=== PATIENT | male | born 1945 | race Caucasian/White ===

== ENCOUNTER 2022-07-12 05:48 | Inpatient (IN) ==
--- NOTE | 2022-06-20 11:05 | PAT Medication Instructions ---
Medication Instructions Date of Service June 20, 2022 Home Medications atorvastatin 20 mg tablet 20 mg PO HS cyanocobalamin (vitamin B-12) 1,000 mcg tablet (Vitamin B-12) 1,000 mcg PO QAM fentanyl 25 mcg/hr transdermal patch 1 patch transdermal Q72H hydrochlorothiazide 25 mg tablet 25 mg PO QAM loratadine 10 mg tablet (Claritin) 10 mg PO QAM methocarbamol 500 mg tablet 500 mg PO Q12 PRN MUSCLE SPASMS omeprazole 20 mg capsule,delayed release 20 mg PO BID sertraline 50 mg tablet 75 mg PO QAM tamsulosin 0.4 mg capsule (Flomax) 0.4 mg PO HS pregabalin 300 mg capsule 300 mg PO BID Continue as directed fentanyl 25 mcg/hr transdermal patch 1 patch transdermal Q72H (do NOT put on or near surgical site) DO NOT take the morning of surgery cyanocobalamin (vitamin B-12) 1,000 mcg tablet (Vitamin B-12) 1,000 mcg PO QAM hydrochlorothiazide 25 mg tablet 25 mg PO QAM loratadine 10 mg tablet (Claritin) 10 mg PO QAM methocarbamol 500 mg tablet 500 mg PO Q12 PRN MUSCLE SPASMS Take morning of surgery With a small sip of water, OTHERWISE NOTHING TO EAT OR DRINK AFTER MIDNIGHT: omeprazole 20 mg capsule,delayed release 20 mg PO BID sertraline 50 mg tablet 75 mg PO QAM pregabalin 300 mg capsule 300 mg PO BID Take evening before surgery atorvastatin 20 mg tablet 20 mg PO HS methocarbamol 500 mg tablet 500 mg PO Q12 PRN MUSCLE SPASMS (if needed) omeprazole 20 mg capsule,delayed release 20 mg PO BID tamsulosin 0.4 mg capsule (Flomax) 0.4 mg PO HS pregabalin 300 mg capsule 300 mg PO BID Other Notes If you have any questions please call us at [phone] or [phone] or [phone] or [phone]
--- NOTE | 2022-06-28 11:52 | Anesthesiology Consultation ---
Date of Service June 28, 2022 Assessment & Plan (1) Encounter for pre-operative examination: - awaiting surgeon ordered medical clearance, optimization note completed regarding elevated creatinine-to be faxed to [place] PCP Isac Melton. - h/o "throat cyst" excision, pt and state it was many yrs ago, deny h/o intubation issues. Chart Review Chart Review: Pending: Refer to Additional Notes / Consult section and Patient seen in Pre Admission Testing Teaching & Discussion Pre-Anesthesia Teaching/Discussion Notes: Instructed NPO after midnight before surgery, except medications with 15 cc of water. Medication instructions provided according to the PAT guidelines. History Surgery Operation Date: 07/12/22 07:45 Proposed Procedures p L3-S1 Decompression and Fusion, Spinal Cord Monitoring - Ministerio Donato DO Height/Weight Height: 6 ft Weight: 99.79 kg Allergies Allergy/AdvReac Type Severity Reaction Status Date / Time morphine Allergy Severe ITCHING Verified 06/20/22 10:05 Sulfa (Sulfonamide Allergy Severe Anaphylaxis Verified 06/20/22 10:05 Antibiotics) shellfish derived AdvReac KELLY/ GI Verified 06/28/22 11:54 upset Medications Home Medications Medication Instructions Recorded Confirmed Last Taken atorvastatin 20 mg tablet 20 mg PO HS 04/23/20 06/20/22 Unknown cyanocobalamin (vitamin B-12) 1,000 mcg PO QAM 04/23/20 06/20/22 Unknown 1,000 mcg tablet (Vitamin B-12) fentanyl 25 mcg/hr transdermal 1 patch transdermal Q72H 04/23/20 06/20/22 U nknown patch hydrochlorothiazide 25 mg tablet 25 mg PO QAM 04/23/20 06/20/22 Unknown loratadine 10 mg tablet (Claritin) 10 mg PO QAM 04/23/20 06/20/22 Unknown methocarbamol 500 mg tablet 500 mg PO Q12 PRN MUSCLE SPASMS 04/23/20 06/20/22 Unknown omeprazole 20 mg capsule,delayed 20 mg PO BID 04/23/20 06/20/22 Unknown release sertraline 50 mg tablet 75 mg PO QAM 04/23/20 06/20/22 Unknown tamsulosin 0.4 mg capsule (Flomax) 0.4 mg PO HS 04/23/20 06/20/22 Unknown pregabalin 300 mg capsule 300 mg PO BID 06/20/22 06/20/22 Unknown Past Medical History Medical History (Updated 06/28/22 @ 11:56 by Dora Gregory PA-C) BPH (benign prostatic hyperplasia) Chronic lumbar pain Depression GERD (gastroesophageal reflux disease) controlled, stable per pt; s/p surgical intervention hiatal hernia Hearing deficit History of bleeding peptic ulcer History of blood transfusion 1990s for GI bleed Hyperlipidemia Hypertension controlled, stable per pt Irregular heart beat per , "every once in a while his heart beats funny" denies palpitations, chest discomfort, shortness of breath or dizziness Neuropathy hands and feet bilat PTSD (post-traumatic stress disorder) Patient denies h/o stroke, seizures, heart attack, heart failure, DM, blood clots or blood transfusions. Exercise / Class Metabolic Activity II 4-5 Yardwork/Stairs/Walk up hill (denies chest discomfort or shortness of breath with 1 FOS) Past Family History Family History Other No family history of adverse response to anesthesia Past Surgical History Surgical History (Updated 06/28/22 @ 12:09 by Dora Gregory PA-C) H/O removal of cyst throat History of back surgery History of colonoscopy History of esophagogastroduodenoscopy (EGD) History of repair of hiatal hernia History of right inguinal hernia repair History of tonsillectomy History of tooth extraction Past Anesthesia History No Hx of Anesthesia Complications and No Family Hx of Anesthesia Complications History of PONV No Hx of PONV and No Hx of Motion Sickness Social History Smoking Status: Former smoker Do You Dip or Chew Tobacco: No Smoking End Date: 1988 Hx Alcohol Use: No Hx Substance Use: No substance use type: does not use Review of Systems Patient denies chest pain, shortness of breath, dyspnea on exertion, snoring, witnessed apneas, fever, chills, cough, wheezing, or palpitations. Physical Exam Vital Signs Vitals BP 133/81 P 75 TEMP 98.3 SP02 97% on RA RESP 18 Physical Full cervical extension range of motion without pain TMD 3.5 finger breadths Mallampati Score Dentition: edentulous, full upper and lower dentures Lungs: normal respiratory effort. Good air movement, clear throughout to auscultation, no adventitious breath sounds Cardiac: regular rate and rhythm, no murmurs noted Carotid arteries: negative bruit bilat Lab Results Anesthesia Preop Results Results Anesthesia Widget: WBC 5.48 K/ul (4.8-10.8) 06/28/22 Hgb 13.5 g/dl (14.0-18.0) L 06/28/22 Hct 39.7 % (42.0-52.0) L 06/28/22 Plt 147 K/uL (130-400) 06/28/22 Na 141 mmol/L (136-145) 06/28/22 K 3.9 mmol/L (3.5-5.1) 06/28/22 Cl 105 mmol/L (98-107) 06/28/22 CO2 28 mmol/L (21-32) 06/28/22 BUN 31 mg/dl (6-23) H 06/28/22 Creat 1.53 mg/dl (0.6-1.4) H 06/28/22 Glucose Level 103 mg/dl (70-99(Fasting)) H 06/28/22 PT 11.6 Seconds (9.0-12.0) 06/28/22 PTT 27.9 Seconds (21.0-31.0) 06/28/22 INR 1.1 (0.9-1.1) 06/28/22 Urine Color Dark Yellow 06/28/22 Urine Appearance Clear (Clear) 06/28/22 Urine pH 5.0 (4.5-7.5) 06/28/22 Urine Specific [place] 1.022 (1.000-1.030) 06/28/22 Urine Protein Negative (Negative) 06/28/22 Urine Glucose (UA) Negative (Negative) 06/28/22 Urine Ketones Trace (Negative) H 06/28/22 Urine Blood Negative (Negative) 06/28/22 Urine Nitrite Negative (Negative) 06/28/22 Urine Bilirubin Negative (Negative) 06/28/22 Urine Urobilinogen Negative (Negative) 06/28/22 Urine Leukocyte Esterase Negative (Negative) 06/28/22 Blood Type A Positive 06/28/22 Antibody Screen NEGATIVE 06/28/22 Testing Electrocardiogram Date: 06/28/22 NSR, rate 60 bpm Chest X-Ray Date: 06/28/22 No acute process COVID-19 Risk Screen Screening Information COVID-19 Screen Date: 06/28/22 Exposure 21 Days Family/Household +COVID Last 21 Days: No Exposure 10 Days Any COVID Exposure Last 10 Days: No Symptoms Last 10 Days Experienced COVID Sx Last 10 Days: No + COVID 0-90 Days COVID + in Last 0-90 Days: No
[2022-07-12] MEDS ORDERED: LR 15ML/HR IV SCH (06:00)
[2022-07-12] MEDS ORDERED: GABAPENTIN 300 MG CAP PO SCH (06:00)
[2022-07-12] MEDS ORDERED: ACETAMINOPHEN 500 MG TAB PO SCH (06:00)
[2022-07-12] MEDS ORDERED: CeleBREX 200 MG CAP PO SCH (06:00)
[2022-07-12] MEDS ORDERED: fentaNYL citrate PF 100 MCG/2 ML VIAL ONE (07:10)
[2022-07-12] MEDS ORDERED: ceFAZolin 330 MG/ML 1 GM VIAL ONE (07:15)
[2022-07-12] MEDS ORDERED: BUPIVACAINE/EPINEPHRINE 0.25% 1:200,000 30 ML VIAL ONE (07:15)
[2022-07-12] MEDS ORDERED: ROCURONIUM BROMIDE 10 MG/ML 5 ML VIAL IV ONE ×3 (07:21→09:30)
[2022-07-12] MEDS ORDERED: PROPOFOL IV EMULSION 10 MG/ML 20 ML VIAL IV ONE (07:21)
[2022-07-12] MEDS ORDERED: LIDOCAINE 2% 2 ML VIAL/AMP(20MG/ML) INFIL ONE (07:21)
--- NOTE | 2022-07-12 07:36 | History & Physical Bridge Note ---
Date of Service July 12, 2022 History & Physical Bridge Note I have examined the patient, reviewed the History & Physical and in the interval since the performance of the History & Physical I have noted the following changes of clinical significance: no changes noted
--- NOTE | 2022-07-12 07:38 | History & Physical Report ---
Date of Service July 12, 2022 Assessment & Plan (1) Neurogenic claudication due to lumbar spinal stenosis: Plan: L3-S1 decompression and fusion History of Present Illness Chief Complaint: Back and leg pain Primary Care Provider: BELIA DixonC This is a 76-year-old male who presents with significant back and leg pain after failing extensive course of nonoperative care is here for surgical intervention. Allergies Allergy/AdvReac Type Severity Reaction Status Date / Time morphine Allergy Severe ITCHING Verified 07/12/22 06:26 Sulfa (Sulfonamide Allergy Severe Anaphylaxis Verified 07/12/22 06:26 Antibiotics) shellfish derived AdvReac KELLY/ GI Verified 07/12/22 06:26 upset Home Medications Medication Instructions Recorded Confirmed Type atorvastatin 20 mg tablet 20 mg PO HS 04/23/20 07/12/22 History cyanocobalamin (vitamin B-12) 1,000 mcg PO QAM 04/23/20 07/12/22 History 1,000 mcg tablet (Vitamin B-12) fentanyl 25 mcg/hr transdermal 1 patch transdermal Q72H 04/23/20 07/12/22 History patch hydrochlorothiazide 25 mg tablet 25 mg PO QAM 04/23/20 07/12/22 History loratadine 10 mg tablet (Claritin) 10 mg PO QAM 04/23/20 07/12/22 History methocarbamol 500 mg tablet 500 mg PO Q12 PRN MUSCLE SPASMS 04/23/20 07/12/22 History omeprazole 20 mg capsule,delayed 20 mg PO BID 04/23/20 07/12/22 History release sertraline 50 mg tablet 75 mg PO QA 04/23/20 07/12/22 History tamsulosin 0.4 mg capsule (Flomax) 0.4 mg PO HS 04/23/20 07/12/22 History pregabalin 300 mg capsule 300 mg PO BID 06/20/22 07/12/22 History Past Med/Surg History Medical History (Updated 07/12/22 @ 07:37 by Ministerio Donato DO) BPH (benign prostatic hyperplasia) Chronic lumbar pain Depression GERD (gastroesophageal reflux disease) controlled, stable per pt; s/p surgical intervention hiatal hernia Hearing deficit History of bleeding peptic ulcer History of blood transfusion 1990s for GI bleed Hyperlipidemia Hypertension controlled, stable per pt Irregular heart beat per , "every once in a while his heart beats funny" denies palpitations, chest discomfort, shortness of breath or dizziness Neuropathy hands and feet bilat PTSD (post-traumatic stress disorder) Surgical History H/O removal of cyst throat History of back surgery History of colonoscopy History of esophagogastroduodenoscopy (EGD) History of repair of hiatal hernia History of right inguinal hernia repair History of tonsillectomy History of tooth extraction Family History Other No family history of adverse response to anesthesia Social History Smoking Status: Former smoker Smoking End Date: 1988; Second Hand Exposure: No; Do You Dip or Chew Tobacco: No; Tobacco Cessation Education Requested by Patient: No Hx Alcohol Use: No Hx Substance Use: No Preferred Language: Korean Communication Ability: Effective An/Syq 13 Nav/C2 Operator Required: No Beliefs That Will Affect Care: None marital status: Current Living Situation: Spouse current occupational status: retired Feels Safe at Home: Yes Safety Concerns: Feels Safe At This Time Assistive Devices: Cane, Denture - Upper, Denture - Lower, Glasses and Hearing Aid - Bilateral Assistive Devices Comment: does not always wear KELLY Physical Exam Physical Exam: Patient is alert and oriented Heart regular rhythm Lungs clear Results & Data Results & Data Vital Signs (Past 12 Hours) Vital Signs Temp Pulse Resp BP Pulse Ox O2 Del Method 07/12/22 07:03 36.7 C 57 L 20 155/87 H 98 Room Air
[2022-07-12] MEDS ORDERED: SODIUM CHLORIDE 0.9% 250 ML IV PRN (07:42)
[2022-07-12] MEDS ORDERED: FLOSEAL HEMOSTATIC MATRIX 10ML TOP ONE (08:39)
[2022-07-12] MEDS ORDERED: FLUMAZENIL 0.1 MG/1 ML 10 ML VIAL IV PRN (08:44)
[2022-07-12] MEDS ORDERED: ATROPINE SULFATE 0.1 MG/ML 10ML SYR IV PRN (08:44)
[2022-07-12] MEDS ORDERED: PROMETHAZINE HCL 12.5 MG in SODIUM CHLORIDE 0.9% 50 ML IV PRN ×2 (08:44→12:54)
[2022-07-12] MEDS ORDERED: NALOXONE HCL 0.4 MG/1 ML VIAL/CARP IV PRN ×2 (08:44→12:54)
[2022-07-12] MEDS ORDERED: ONDANSETRON INJ 2 MG/ML 2 ML VIAL IV PRN ×2 (08:44→12:54)
[2022-07-12] MEDS ORDERED: LABETALOL HCL IV 5 MG/ML 20ML IV PRN (08:44)
[2022-07-12] MEDS ORDERED: ePHEDrine sulfate 50 MG/ML AMP IV PRN (08:44)
[2022-07-12] MEDS ORDERED: DEXAMETHASONE SOD INJ 4 MG/ML VIAL ONE (09:35)
[2022-07-12] MEDS ORDERED: ONDANSETRON INJ 2 MG/ML 2 ML VIAL ONE (09:35)
[2022-07-12] MEDS ORDERED: PHENYLEPHRINE HCL 10 MG/ML VIAL ONE (09:35)
[2022-07-12] MEDS ORDERED: SODIUM CHLORIDE 0.9% PF INJ 10 ML VIAL ONE (09:35)
[2022-07-12] MEDS ORDERED: ePHEDrine sulfate 50 MG/ML AMP ONE (09:35)
[2022-07-12] MEDS ORDERED: GLYCOPYRROLATE 0.2 MG/ML VIAL ONE (09:35)
[2022-07-12] MEDS ORDERED: SUGAMMADEX SODIUM 200 MG/2 ML VIAL IV ONE (09:47)
--- NOTE | 2022-07-12 10:09 | Operative Report ---
Post Operative Report Pre & Post Diagnosis Operation Date: 07/12/22 07:45 Pre-Op Diagnosis: Neurogenic claudication due to lumbar spinal stenosis Recurrent lumbar disc herniation Post-Op Diagnosis: Same I identified the patient and participated in the time-out.: Yes Procedure Operation Date: 07/12/22 07:45 Actual Procedures 1. Revision decompression of bilateral medial facetectomies and foraminotomies L2-L3, L3-L4 and L4-5. #2 posterior spinal fusion L3-L4 L4-5. #3 placement posterior instrumentation L3-L5. #4 interbody fusion L4-L5. #5 placement Spira 14 x 26 mm cage at L4-5. #6 placement of locally harvested morselized autograft in the posterior gutters. #7 placement infuse collagen sponge bone mass graft in the posterior gutters and I factor in the interbody space. Surgeon Ministerio Donato DO Medical Chief Technician Camila Bajwa Estimated Blood Loss 350 Findings Consistent with Post-Op Diagnosis Specimens none Indications This is a 76-year-old male presents above-mentioned diagnosis Extensive course of nonoperative care is here for surgical invention. Description of Procedure Patient was met with identified informed consent obtained. Patient was then taken to the operative suite underwent intubation placed in the prone position on the Gerson table top Keanu frame. All bony promises well-padded eyes inspected to ensure no external pressure placed upon the proximal lumbar spine was prepped and draped in sterile fashion. Sharp dissection with the assistance of Bovie cautery then performed down to and exposing the remaining lamina and transverse processes of L3-L4-L5 bilaterally. From caudal and cephalad fashion revision complete laminectomy of L4 L3 and partial laminectomy L2 was performed and bilaterally facetectomies and foraminotomies addressing severe spinal stenosis. Marked scarring was identified and an incidental durotomy noted. I was repaired with a 4-0 Nurolon which provided complete closure. Massive recurrent disc herniation L4-5 was also identified and removed in its entirety. Pedicle screws then placed in all 3 L4-L5 bilaterally with assistance of fluoroscopy and properly sized lisa placed. By way of transforaminal approach and left knee discectomy of L for 5 was performed endplates curetted to subcortically and bone and the 14 x 26 mm Spira cage with I factor tapped in position. Infuse bone sponge from mass graft locally harvested morselized autograft was then placed in the posterior gutters. 15 round YESSENIA drain inserted. Incision was then closed with 1 Vicryl the fascia 2-0 Vicryl subcutaneously and 4 Monocryl for final skin closure. Steri-Strip sterile dressing placed. Patient awakened taken to PACU stable condition. Please note spinal cord monitoring utilized at the procedure no changes noted. Lastly Camila Bajwa is present at the entire surgery and while the patient positioning complex portions of the surgery and final skin closure. I attest to the content of the Intraoperative Record and any orders documented therein. Any exceptions are noted below.
[2022-07-12] MEDS: fentaNYL citrate PF 100 MCG/2 ML VIAL IV PRN ×4 (10:48→11:04)
[2022-07-12] MEDS: HYDROmorphone INJ 1 MG/ML SYRINGE IV PRN ×4 (11:10→18:27)
--- NOTE | 2022-07-12 11:31 | Anesthesiology Progress Note ---
Date of Service July 12, 2022 Anesthesia Post Procedure Vital Signs Vital Signs: Temp Pulse Pulse Resp BP Pulse Ox O2 Del Method 07/12/22 11:05 66 12 95/68 L 98 Nasal Cannula 07/12/22 10:55 63 15 112/67 96 Nasal Cannula 07/12/22 11:15 64 14 117/68 96 Nasal Cannula 07/12/22 10:45 67 17 107/73 95 Nasal Cannula 07/12/22 10:35 68 12 112/63 97 Oxymask 07/12/22 10:27 36.2 C L 69 17 124/68 97 Oxymask 07/12/22 07:03 36.7 C 57 L 20 155/87 H 98 Room Air O2 Flow Rate 07/12/22 11:05 2 07/12/22 10:55 2 07/12/22 11:15 2 07/12/22 10:45 2 07/12/22 10:35 5 07/12/22 10:27 5 07/12/22 07:03 Pain Intensity Generalized: Pain Intensity: 5 Back: Pain Intensity: 4 Transfer of Care Handoff Completed per policy Notes Mental Status: alert / awake / arousable Patient Amnestic to Procedure: Yes Nausea / Vomiting: adequately controlled Pain: adequately controlled Airway Patency, RR, SpO2: stable & adequate BP & HR: stable & adequate Hydration State: stable & adequate Anesthetic Complications: no major complications apparent
--- NOTE | 2022-07-12 12:20 | Fluoroscopy Report ---
FL lumbar spine 2-3V CLINICAL HISTORY: L2-S1 DFI TECHNIQUE: 2 views were obtained with the C-arm in the OR with the above procedure. Total fluoroscopy time was 31 seconds. Radiation dose was 36.6 mGy. Comparison: None available at the time of this dictation. FINDINGS/IMPRESSION: Intraoperative images were obtained of L3 S1 discectomy and fusion. Please correlate with intraoperative fluoroscopy and operative report. ACT 112: Negative or not required by law. Electronically signed by: Lico Garnett M.D. 07/12/2022 12:19 PM
[2022-07-12] MEDS ORDERED: diphenhydrAMINE Capsule 25 MG CAP PO PRN (12:54)
[2022-07-12] MEDS ORDERED: ALUMINUM/MAGNESIUM SUSP 30 ML UDC PO PRN (12:54)
[2022-07-12] MEDS ORDERED: bisacodyL 10 MG SUPP PR PRN (12:54)
[2022-07-12] MEDS ORDERED: METHOCARBAMOL 500 MG TABLET PO PRN (12:54)
[2022-07-12] MEDS ORDERED: ACETAMINOPHEN 1,000 MG/100 ML VIAL IV PRN (12:54)
[2022-07-12] MEDS ORDERED: MAGNESIUM HYDROXIDE SUSP 30 ML UDC PO PRN (12:54)
[2022-07-12] MEDS ORDERED: ONDANSETRON 4 MG OD TAB PO PRN (12:54)
[2022-07-12] MEDS ORDERED: SOD PHOSPHATE/SOD BIPHOSPHATE ENEMA 132 ML BTL PR PRN (12:54)
[2022-07-12] MEDS ORDERED: LORazepam 0.5 MG TAB PO PRN (12:54)
[2022-07-12] MEDS ORDERED: DO NOT ADMINISTER FLU VACCINE PRN (12:54)
[2022-07-12] MEDS ORDERED: traMADol HCL 50 MG TABLET PO PRN (12:54)
[2022-07-12] MEDS ORDERED: DO NOT ADMINISTER PNEUMOCOCCAL VACCINE PRN (12:54)
[2022-07-12] MEDS ORDERED: FAMOTIDINE 20 MG TAB PO PRN (12:54)
[2022-07-12] MEDS ORDERED: LORazepam 2 MG/1 ML VIAL IV PRN (12:54)
[2022-07-12] MEDS ORDERED: HYDROmorphone INJ 0.5 MG/0.5 ML SYR IV PRN (12:54)
[2022-07-12] MEDS ORDERED: METOCLOPRAMIDE HCL INJ 5 MG/ML 2 ML VIAL IV PRN (12:54)
[2022-07-12] MEDS ORDERED: hydrOXYzine HCl 25 MG TAB PO PRN (12:54)
[2022-07-12] MEDS: fentaNYL 25 MCG/HR TDSY TD SCH (13:27)
--- NOTE | 2022-07-12 13:49 | Consultation ---
Date of Consultation July 12, 2022 Assessment & Plan (1) Neurogenic claudication due to lumbar spinal stenosis: (2) Hypertension: (3) Hyperlipidemia: (4) BPH (benign prostatic hyperplasia): Plan Neurogenic claudication due to lumbar spinal stenosis S/P L3-L5 decompression fusion by Dr. Donato POD #0 EBL: 350ml Pain/wound management per orthopedic Activity and therapy as per orthopedics Encourage incentive spirometry and wean oxygen as able Monitor hemoglobin, preop 13.7 Hypertension BP on lower side, will hold HCTZ, resume as able Hyperlipidemia Continue statin BPH Continue Flomax PTSD/anxiety Continue Zoloft Chronic pain syndrome Patient on Lyrica and fentanyl patch DVT ppx: per primary Dispo: per primary PCP: Isac Melton FULL CODE Thank you for this consultation. We will follow the patient with you during their hospital stay. You can reach a member of the [facility] Hospitalist Team 28/08 via hospitalist role on tiger text. Pt was seen and examined in collaboration with Dr. Zepeda, please see addendum Supervising Physician Co-Signing Physician Notes patient is a full code. s/p l3-[address] Donato pain well controlled at this time Constitutional: WD/WN, Head: Normocephalic, Atraumatic Eyes: PERRL, ENMT:NAD Neck: trachea midline, Respiratory: normal respiratory effort, lungs clear to auscultation, Cardiovascular: RRR, no murmur, Chest: normal inspection of chest Abdomen: normal bowel sounds, soft, Skin: no rashes, Neurologic: PERRL, EOMI, Psychiatric: normal affect History of Present Illness Requesting Physician: Dr. Donato Reason for Consultation: Post op med management Attending Physician: Ministerio Donato DO History of Present Illness This is a 76-year-old male who has significant past medical history of HTN, HLD, history of PUD, GERD, depression, chronic back pain, BPH, neuropathy and PTSD who presents for lumbar procedure by Dr. Donato. He underwent L3-L5 decompression fusion and tolerated the procedure well. Patient follows PCP Isac Melton. He has history of HTN controlled on hydrochlorothiazide. He also has BPH controlled on Flomax. He has history of hyperlipidemia controlled on atorvastatin. He also is chronic pain on fentanyl patch. Postoperatively he has incisional pain but otherwise offers no acute concerns. He denies fever, chills, sweats, lightheadedness, dizziness, chest pain, shortness of breath, nausea, vomiting, abdominal pain. Allergies Allergy/AdvReac Type Severity Reaction Status Date / Time morphine Allergy Severe ITCHING Verified 07/12/22 06:26 Sulfa (Sulfonamide Allergy Severe Anaphylaxis Verified 07/12/22 06:26 Antibiotics) shellfish derived AdvReac KELLY/ GI Verified 07/12/22 06:26 upset Home Medications Medication Instructions Recorded Confirmed Type atorvastatin 20 mg tablet 20 mg PO HS 04/23/20 07/12/22 History cyanocobalamin (vitamin B-12) 1,000 mcg PO QAM 04/23/20 07/12/22 History 1,000 mcg tablet (Vitamin B-12) fentanyl 25 mcg/hr transdermal 1 patch transdermal Q72H 04/23/20 07/12/22 History patch hydrochlorothiazide 25 mg tablet 25 mg PO QAM 04/23/20 07/12/22 History loratadine 10 mg tablet (Claritin) 10 mg PO QAM 04/23/20 07/12/22 History methocarbamol 500 mg tablet 500 mg PO Q12 PRN MUSCLE SPASMS 04/23/20 07/12/22 History omeprazole 20 mg capsule,delayed 20 mg PO BID 04/23/20 07/12/22 History release sertraline 50 mg tablet 75 mg PO QAM 04/23/20 07/12/22 History tamsulosin 0.4 mg capsule (Flomax) 0.4 mg PO HS 04/23/20 07/12/22 History pregabalin 300 mg capsule 300 mg PO BID 06/20/22 07/12/22 History Patient History Medical History BPH (benign prostatic hyperplasia) Chronic lumbar pain Depression GERD (gastroesophageal reflux disease) controlled, stable per pt; s/p surgical intervention hiatal hernia Hearing deficit History of bleeding peptic ulcer History of blood transfusion 1990s for GI bleed Hyperlipidemia Hypertension controlled, stable per pt Irregular heart beat per , "every once in a while his heart beats funny" denies palpitations, chest discomfort, shortness of breath or dizziness Neuropathy hands and feet bilat PTSD (post-traumatic stress disorder) Surgical History H/O removal of cyst throat History of back surgery History of colonoscopy History of esophagogastroduodenoscopy (EGD) History of repair of hiatal hernia History of right inguinal hernia repair History of tonsillectomy History of tooth extraction Family History Other No family history of adverse response to anesthesia Social History Smoking Status: Former smoker Smoking End Date: 1988; Second Hand Exposure: No; Do You Dip or Chew Tobacco: No; Tobacco Cessation Education Requested by Patient: No Hx Alcohol Use: No Hx Substance Use: No Preferred Language: Greek Communication Ability: Effective Animal Science Instructor Required: No Beliefs That Will Affect Care: None marital status: Current Living Situation: Spouse current occupational status: retired Feels Safe at Home: Yes Safety Concerns: Feels Safe At This Time Assistive Devices: Cane, Denture - Upper, Denture - Lower, Glasses and Hearing Aid - Bilateral Assistive Devices Comment: does not always wear KELLY Review of Systems Review of Systems: All systems reviewed & are unremarkable except as noted in HPI & below Physical Exam Physical Exam: Constitutional: WD/WN, vitals as above, NAD, sitting up in bed, pleasant, conversing easily Head: Normocephalic, Atraumatic Eyes: PERRL, conjunctivae normal, anicteric sclerae ENMT: external ear and nose normal, oropharynx normal Neck: trachea midline, no thyromegaly normal visual inspection Respiratory: normal respiratory effort, lungs clear to auscultation, no wheeze, rales, rhonchi. Normal insp/exp effort, no accessory muscle use Cardiovascular: RRR, no murmur, no edema Vessels: no JVD or carotid bruit Chest: normal inspection of chest Abdomen: normal bowel sounds, soft, nontender, no hepatosplenomegaly Musculoskeletal: no cyanosis or clubbing, extremities motor strength 5/5 Skin: no rashes, warm and dry normal turgor Neurologic: PERRL, EOMI, accommodation nl, no face palsy, no dysarthria CN's II-XI intact bilaterally and moves all extremities Psychiatric: A+Ox3, euthymic affect Lymphatic: no cervical or axillary lymphadenopathy : deferred Results & Data Vital Signs (Past 12 Hours) Vital Signs Temp Pulse Pulse Resp BP Pulse Ox O2 Del Method 07/12/22 13:08 36.4 C L 60 16 114/71 96 Nasal Cannula 07/12/22 12:35 36.4 C L 60 18 109/66 95 Nasal Cannula 07/12/22 12:35 Nasal Cannula 07/12/22 12:05 36.4 C L 58 L 16 105/64 94 Room Air 07/12/22 11:45 61 14 116/67 99 Nasal Cannula 07/12/22 11:05 66 12 95/68 L 98 Nasal Cannula 07/12/22 10:55 63 15 112/67 96 Nasal Cannula 07/12/22 11:35 36.3 C L 61 12 111/64 97 Nasal Cannula 07/12/22 11:25 62 17 120/66 94 Nasal Cannula 07/12/22 11:15 64 14 117/68 96 Nasal Cannula 07/12/22 10:45 67 17 107/73 95 Nasal Cannula 07/12/22 10:35 68 12 112/63 97 Oxymask 07/12/22 10:27 36.2 C L 69 17 124/68 97 Oxymask 07/12/22 07:03 36.7 C 57 L 20 155/87 H 98 Room Air O2 Flow Rate 07/12/22 13:08 2 07/12/22 12:35 2 07/12/22 12:35 07/12/22 12:05 07/12/22 11:45 2 07/12/22 11:05 2 07/12/22 10:55 2 07/12/22 11:35 2 07/12/22 11:25 2 07/12/22 11:15 2 07/12/22 10:45 2 07/12/22 10:35 5 07/12/22 10:27 5 07/12/22 07:03 Laboratory Results Preop lab work done on 06/28/2022 revealed H&H 13.5 and 39.7, WC 5.48, BUN 31, creatinine 1.53, negative urinalysis and negative SARS-CoV-2. Diagnostic Findings Lumbar Spine X-Ray 07/12/22 07:45 FL lumbar spine 2-3V CLINICAL HISTORY: L2-S1 DFI TECHNIQUE: 2 views were obtained with the C-arm in the OR with the above procedure. Total fluoroscopy time was 31 seconds. Radiation dose was 36.6 mGy. Comparison: None available at the time of this dictation. FINDINGS/IMPRESSION: Intraoperative images were obtained of L3 S1 discectomy and fusion. Please correlate with intraoperative fluoroscopy and operative report. ACT 112: Negative or not required by law. Electronically signed by: Lico Garnett M.D. 07/12/2022 12:19 PM Medications Administered Current Inpatient Medications Acetaminophen (Acetaminophen 500 Mg Tab) 1,000 mg PO PREOP WILLIS Stop: 07/12/22 18:00 Last Admin: 07/12/22 07:05 Dose: 1,000 mg Acetaminophen (Acetaminophen 500 Mg Tab) 1,000 mg PO Q8H PRN PRN Reason: MILD Pain Scale 1,2,3 & Pre PT Stop: 08/11/22 12:53 Al Hydrox/Mg Hydrox/Simethicone (Aluminum/Magnesium Susp 30 Ml Udc) 30 ml PO Q6H PRN PRN Reason: Dyspepsia Stop: 08/11/22 12:53 Atorvastatin Calcium (Atorvastatin 20 Mg Tab) 20 mg PO HS WILLIS Stop: 08/11/22 20:59 Atropine Sulfate (Atropine Sulfate 0.1 Mg/Ml 10ml Syr) 0.5 mg IV Q1M PRN PRN Reason: PACU Use-HR<40 &/or Bradycardi Stop: 07/12/22 16:44 Bisacodyl (Bisacodyl 10 Mg Supp) 10 mg CA DAILY PRN PRN Reason: Constipation Stop: 08/11/22 12:53 Celecoxib (Celebrex 200 Mg Cap) 200 mg PO PREOP WILLIS Stop: 07/12/22 18:00 Last Admin: 07/12/22 07:05 Dose: 200 mg Cyanocobalamin (Cyanocobalamin (B-12) 500 Mcg Tablet) 1,000 mcg PO QAM WILLIS Stop: 08/12/22 08:59 Diphenhydramine HCl (Diphenhydramine Capsule 25 Mg Cap) 25 mg PO Q6H PRN PRN Reason: Allergic Rhinitis/Insomnia Stop: 08/11/22 12:53 Ephedrine Sulfate (Ephedrine Sulfate 50 Mg/Ml Amp) 5 mg IV Q5M PRN PRN Reason: PACU Use Only-SBP<90 mmHg Stop: 07/12/22 16:44 Famotidine (Famotidine 20 Mg Tab) 20 mg PO Q12H PRN PRN Reason: Dyspepsia Stop: 08/11/22 12:53 Fentanyl (Fentanyl 25 Mcg/Hr Tdsy) 25 mcg TD Q72H WILLIS Stop: 07/26/22 12:53 Last Admin: 07/12/22 13:27 Dose: 25 mcg Fentanyl Citrate (Fentanyl Citrate Pf 100 Mcg/2 Ml Vial) 25 mcg IV Q5M PRN PRN Reason: PACU Use Only-Pain Stop: 07/12/22 16:44 Last Admin: 07/12/22 11:04 Dose: 25 mcg Flumazenil (Flumazenil 0.1 Mg/1 Ml 10 Ml Vial) 0.2 mg IV Q2M PRN PRN Reason: PACU Use Only-Benzo Reversal Stop: 07/12/22 16:44 Gabapentin (Gabapentin 300 Mg Cap) 300 mg PO PREOP WILLIS Stop: 07/12/22 18:00 Last Admin: 07/12/22 07:05 Dose: 300 mg Hydrochlorothiazide (Hydrochlorothiazide 25 Mg Tab) 25 mg PO QAM WILLIS Stop: 08/12/22 08:59 Hydromorphone HCl (Hydromorphone Inj 1 Mg/Ml Syringe) 0.25 mg IV Q5M PRN PRN Reason: PACU Use Only-Pain Stop: 07/12/22 16:44 Last Admin: 07/12/22 11:20 Dose: 0.25 mg Hydromorphone HCl (Hydromorphone Inj 0.5 Mg/0.5 Ml Syr) 0.5 mg IV Q3H PRN PRN Reason: MODERATE Pain (Scale 4,5,6) & Pre PT Stop: 07/26/22 12:53 Hydromorphone HCl (Hydromorphone Inj 1 Mg/Ml Syringe) 1 mg IV Q3H PRN PRN Reason: SEVERE Pain (Scale 7,8,9,10) Stop: 07/26/22 12:53 Hydroxyzine HCl (Hydroxyzine Hcl 25 Mg Tab) 25 mg PO Q8H PRN PRN Reason: Anxiety Stop: 08/11/22 12:53 Lactated Ringer's (Lr) 1,000 mls @ 15 mls/hr IV .Q24H WILLIS Stop: 07/13/22 05:59 Last Infusion: 07/12/22 07:47 Dose: Infused Cefazolin Sodium (Ancef 3000mg) 72.5 mls @ 130 mls/hr IV PREOP WILLIS; Protocol Stop: 07/12/22 18:00 Last Infusion: 07/12/22 13:28 Dose: Infused Sodium Chloride (Nss) 250 mls @ 15 mls/hr IV .[id number] PRN PRN Reason: For Transfusion Duration Stop: 07/12/22 17:42 Promethazine HCl 12.5 mg/ (Sodium Chloride) 50.5 mls @ 204 mls/hr IV ONCE PRN PRN Reason: PACU Use Only-Nausea/Vomiting Stop: 07/12/22 16:44 Lactated Ringer's (Lr) 1,000 mls @ 150 mls/hr IV .Q6H40M WILLIS Stop: 08/11/22 12:53 Promethazine HCl 12.5 mg/ (Sodium Chloride) 50.5 mls @ 202 mls/hr IV Q6H PRN PRN Reason: Nausea &/or Vomiting Stop: 08/11/22 12:53 Acetaminophen (Ofirmev) 1,000 mg in 100 mls @ 400 mls/hr IV Q8H PRN PRN Reason: Pain Rating 1-3 & Pre PT Stop: 07/13/22 12:54 Cefazolin Sodium (Ancef 2000mg) 2,000 mg in 15 mls @ 3.75 mls/min IV Q8H WILLIS; Protocol Stop: 07/13/22 00:18 Dexamethasone 6 mg/ Syringe 1.5 mls @ 1 mls/min IV DAILY [facility] Stop: 07/15/22 09:02 Influenza Virus Vaccine Quadrival (Do Not Administer Flu Vaccine) 1 each N/A PRN PRN PRN Reason: Notification Stop: 08/11/22 12:53 Labetalol HCl (Labetalol Hcl Iv 5 Mg/Ml 20ml) 5 mg IV Q5M PRN PRN Reason: PACU Use-SBP>160 or DBP>100 Stop: 07/12/22 16:44 Loratadine (Loratadine 10 Mg Tab) 10 mg PO QAM WILLIS Stop: 08/12/22 08:59 Lorazepam (Lorazepam 0.5 Mg Tab) 0.5 mg PO Q8H PRN PRN Reason: Sedation/Anxiety Stop: 08/11/22 12:53 Lorazepam (Lorazepam 2 Mg/1 Ml Vial) 0.5 mg IV Q8H PRN PRN Reason: Sedation/Anxiety Stop: 08/11/22 12:53 Magnesium Hydroxide (Magnesium Hydroxide Susp 30 Ml Udc) 30 ml PO Q24H PRN PRN Reason: Constipation Stop: 08/11/22 12:53 Methocarbamol (Methocarbamol 500 Mg Tablet) 500 mg PO Q12 PRN PRN Reason: MUSCLE SPASMS Stop: 08/11/22 12:53 Metoclopramide HCl (Metoclopramide Hcl Inj 5 Mg/Ml 2 Ml Vial) 10 mg IV Q6H PRN PRN Reason: Nausea &/or Vomiting Stop: 08/11/22 12:53 Miscellaneous (Check Fentanyl Patch Placement) 1 each N/A QS WILLIS Stop: 08/11/22 15:59 Miscellaneous (Fentanyl Patch Remove & Waste) 1 each N/A Q3D WILLIS Stop: 08/11/22 12:53 Last Admin: 07/12/22 13:29 Dose: Not Given Naloxone HCl (Naloxone Hcl 0.4 Mg/1 Ml Vial/Carp) 0.2 mg IV Q2M PRN PRN Reason: PACU Use Only-Opiate Reversal Stop: 07/12/22 16:44 Naloxone HCl (Naloxone Hcl 0.4 Mg/1 Ml Vial/Carp) 0.1 mg IV Q5M PRN PRN Reason: Oversedation/Resp depression Stop: 08/11/22 12:53 Ondansetron HCl (Ondansetron Inj 2 Mg/Ml 2 Ml Vial) 4 mg IV ONCE PRN PRN Reason: PACU Use Only-Nausea/Vomiting Stop: 07/12/22 16:44 Ondansetron HCl (Ondansetron Inj 2 Mg/Ml 2 Ml Vial) 4 mg IV Q6H PRN PRN Reason: Nausea &/or Vomiting Stop: 08/11/22 12:53 Ondansetron HCl (Ondansetron 4 Mg Od Tab) 4 mg PO Q6H PRN PRN Reason: Nausea Stop: 08/11/22 12:53 Oxycodone HCl (Oxycodone Hcl Ir 5 Mg Tab (Immediate Release)) 5 - 10 mg PO Q4H PRN PRN Reason: Pain & Pre PT Stop: 07/26/22 12:53 Pantoprazole Sodium (Pantoprazole 40 Mg Tab) 40 mg PO BID WILLIS Stop: 08/11/22 20:59 Pneumococcal Polyvalent Vaccine (Do Not Administer Pneumococcal Vaccine) 1 each N/A PRN PRN PRN Reason: Notification Stop: 08/11/22 12:53 Polyethylene Glycol (Polyethylene (Miralax) 17 Gm Pack) 17 gm PO Q6 WILLIS Stop: 08/12/22 05:59 Pregabalin (Pregabalin 150 Mg Cap) 300 mg PO BID WILLIS Stop: 08/11/22 20:59 Senna/Docusate Sodium (Docusate Sodium/Senna 50/8.6mg Tab) 2 tab PO HS WILLIS Stop: 08/11/22 20:59 Sertraline HCl (Sertraline Hcl 50 Mg Tablet) 75 mg PO QAM WILLIS Stop: 08/12/22 08:59 Sodium Biphosphate/Sodium Phosphate (Sod Phosphate/Sod Biphosphate Enema 132 Ml Btl) 132 ml CA ONE PRN PRN Reason: Constipation Stop: 08/11/22 12:53 Tamsulosin HCl (Tamsulosin Hcl 0.4 Mg Cap) 0.4 mg PO HS WILLIS Stop: 08/11/22 20:59 Tramadol HCl (Tramadol Hcl 50 Mg Tablet) 50 - 100 mg PO Q4H PRN PRN Reason: Moderate-Severe pain & Pre PT Stop: 08/11/22 12:53 ECG Rate (beats per minute): 59 Rhythm: sinus bradycardia
[2022-07-12] MEDS: LACTATED RINGER'S 1,000 ML IV SCH ×2 (14:33→20:31)
[2022-07-12] MEDS: CHECK fentaNYL PATCH PLACEMENT SCH ×2 (16:47→23:07)
[2022-07-12] MEDS: ceFAZolin 2000MG 2,000 MG/15 ML SYR IV SCH ×2 (17:11→23:41)
[2022-07-12] MEDS: TAMSULOSIN HCL 0.4 MG CAP PO SCH (20:32)
[2022-07-12] MEDS: ATORVASTATIN 20 MG TAB PO SCH (20:32)
[2022-07-12] MEDS: PANTOprazole 40 MG TAB PO SCH (20:32)
[2022-07-12] MEDS: DOCUSATE SODIUM/SENNA 50/8.6MG TAB PO SCH (20:32)
[2022-07-12] MEDS: PREGABALIN 150 MG CAP PO SCH (20:36)
[2022-07-12] MEDS: oxyCODONE HCL IR 5 MG TAB (IMMEDIATE RELEASE) PO PRN (22:18)
[2022-07-13] MEDS: LACTATED RINGER'S 1,000 ML IV SCH (02:30)
[2022-07-13] MEDS: HYDROmorphone INJ 1 MG/ML SYRINGE IV PRN (05:50)
[2022-07-13] MEDS: POLYETHYLENE (MIRALAX) 17 GM PACK PO SCH ×4 (05:50→23:18)
[2022-07-13 07:19] LABS: Basophils # (auto) 0.02 K/uL (0-0.2); Basophils % (auto) 0.3 %; Eosinophils # (auto) 0.02 K/uL (0-0.50); Eosinophils % (auto) 0.3 %; Hemoglobin 10.5 g/dl (14.0-18.0); Immature Granulocytes # (auto) 0.02 K/uL (0.01-0.20); Immature Granulocytes % (auto) 0.3 %; Mean Corpuscular Hemoglobin 31.2 pg (25.0-34.0); Mean Corpuscular Hgb Conc 33.9 g/dL (32.0-36.0); Mean Platelet Volume 11.3 fL (9.4-12.4); Monocytes # (auto) 0.53 K/uL (0.11-0.59); Monocytes % (auto) 8.8 %; Neutrophils # (auto) 4.22 K/uL (1.40-6.50); Neutrophils % (auto) 70.3 %; Platelet Count 106 K/uL (130-400); RDW Coefficient of Variation 13.5 % (11.5-14.5); RDW Standard Deviation 45.6 fL (36.4-46.3); Red Blood Count 3.37 M/uL (4.70-6.10); White Blood Count 6.01 K/ul (4.8-10.8)
[2022-07-13] MEDS: CHECK fentaNYL PATCH PLACEMENT SCH ×3 (07:56→23:18)
[2022-07-13] MEDS: dexAMETHasone 6 MG in SYRINGE 0 ML IV SCH (07:57)
[2022-07-13] MEDS: PANTOprazole 40 MG TAB PO SCH ×2 (08:04→19:42)
[2022-07-13] MEDS: PREGABALIN 150 MG CAP PO SCH ×2 (08:04→19:41)
[2022-07-13] MEDS: LORATADINE 10 MG TAB PO SCH (08:04)
[2022-07-13] MEDS: SERTRALINE HCL 50 MG TABLET PO SCH (08:05)
[2022-07-13] MEDS: CYANOCOBALAMIN (B-12) 500 MCG TABLET PO SCH (08:05)
[2022-07-13 08:06] LABS: Calcium 8.7 mg/dl (8.6-10.3); Potassium 3.8 mmol/L (3.5-5.1)
[2022-07-13 08:12] LABS: Creatinine Clr Calc Pharmacy 63.2 ml/min; Est GFR (African American) 65.3 ml/min; Est GFR (Non-African American) 56.4 ml/min
--- NOTE | 2022-07-13 08:26 | Orthopedic Progress Note ---
Date of Service July 13, 2022 Assessment & Plan (1) Neurogenic claudication due to lumbar spinal stenosis: Plan: PT today, dc drain Admission and Anticipated Discharge Date Admission Date: July 12, 2022 Subjective Back pain controlled no leg pain. No headaches nausea or vomiting. Physical Exam Physical Exam: neuro intact good strength Results & Data Vital Signs (Past 12 Hours) Vital Signs Temp Pulse Resp BP Pulse Ox O2 Del Method O2 Flow Rate 07/13/22 07:49 37.1 C 62 18 117/68 94 Room Air 07/13/22 02:34 36.7 C 63 18 112/64 97 Nasal Cannula 2 07/12/22 22:32 36.6 C 50 L 18 109/69 96 Nasal Cannula 2
--- NOTE | 2022-07-13 13:14 | Hospitalist Progress Note ---
Date of Service July 13, 2022 Assessment & Plan (1) Neurogenic claudication due to lumbar spinal stenosis: (2) Hypertension: (3) Hyperlipidemia: (4) BPH (benign prostatic hyperplasia): Plan Neurogenic claudication due to lumbar spinal stenosis S/P L3-L5 decompression fusion by Dr. Donato POD #1 EBL: 350ml Pain/wound management per orthopedic Activity and therapy as per orthopedics Encourage incentive spirometry and wean oxygen as able Monitor hemoglobin, preop 13.7 Hb today is 10.5. Post op anemia likely from blood loss + dilutional Hypertension BP is stable today Continue to hold HCTz for now Hyperlipidemia Continue statin BPH Continue Flomax PTSD/anxiety Continue Zoloft Chronic pain syndrome Patient on Lyrica and fentanyl patch DVT ppx: per primary Dispo: per primary PCP: Isac Melton FULL CODE I spent a total of 40 minutes coordinating, documenting and providing care for this patient excluding time spent in performance of separately billed services Admission and Anticipated Discharge Date Admission Date: July 12, 2022 Subjective Patient seen and examined Reports surgical site pain is controlled Reports radiculopathic pain down his legs he had before surgery has resolved since surgery Reports chronic peripheral neuropathy Denied any nausea, vomiting, abd pain. Yet to have a BM Denied any chest pain, cough, SOB Physical Exam Constitutional: + well hydrated; no acute distress Eyes: PERRL, conjunctivae normal, anicteric sclerae ENMT: external ear and nose normal, oropharynx normal Respiratory: normal respiratory effort, lungs clear to auscultation Cardiovascular: Rate/Rhythm: regular rate and regular rhythm S1 S2 Gastrointestinal (Abdomen): normal bowel sounds, soft, nontender, no hepatosplenomegaly Musculoskeletal: Clean dressing over surgical site Neurologic: PERRL, EOMI, accommodation nl, no face palsy, no dysarthria Psychiatric: A+Ox3, euthymic affect Genitourinary: Rubio in situ Results & Data Results & Data Vital Signs (Past 12 Hours) Vital Signs Temp Pulse Resp BP Pulse Ox O2 Del Method O2 Flow Rate 07/13/22 07:49 37.1 C 62 18 117/68 94 Room Air 07/13/22 02:34 36.7 C 63 18 112/64 97 Nasal Cannula 2 Laboratory Results Abnormal lab results 07/13/22 Range/Units 06:55 RBC 3.37 L (4.70-6.10) M/uL Hgb 10.5 L (14.0-18.0) g/dl Hct 31.0 L (42.0-52.0) % Plt Count 106 L (130-400) K/uL
[2022-07-13] MEDS: oxyCODONE HCL IR 5 MG TAB (IMMEDIATE RELEASE) PO PRN (13:33)
[2022-07-13] MEDS: DOCUSATE SODIUM/SENNA 50/8.6MG TAB PO SCH (19:41)
[2022-07-13] MEDS: TAMSULOSIN HCL 0.4 MG CAP PO SCH (19:41)
[2022-07-13] MEDS: ATORVASTATIN 20 MG TAB PO SCH (19:42)
[2022-07-14] MEDS: POLYETHYLENE (MIRALAX) 17 GM PACK PO SCH ×4 (05:08→23:23)
[2022-07-14 06:44] LABS: Hematocrit (blood only) 31.7 % (42.0-52.0); Hemoglobin 10.7 g/dl (14.0-18.0); Mean Corpuscular Hemoglobin 30.9 pg (25.0-34.0); Mean Corpuscular Hgb Conc 33.8 g/dL (32.0-36.0); Mean Corpuscular Volume 91.6 fL (80.0-100.0); Mean Platelet Volume 11.6 fL (9.4-12.4); Platelet Count 118 K/uL (130-400); RDW Coefficient of Variation 13.7 % (11.5-14.5); RDW Standard Deviation 45.7 fL (36.4-46.3); Red Blood Count 3.46 M/uL (4.70-6.10); White Blood Count 7.84 K/ul (4.8-10.8)
[2022-07-14 07:04] LABS: BUN Creatinine Ratio 14.5 (10-20); Calcium 9.3 mg/dl (8.6-10.3); Creatinine Clr Calc Pharmacy 54.5 ml/min; Est GFR (African American) 54.6 ml/min; Est GFR (Non-African American) 47.1 ml/min; Potassium 3.9 mmol/L (3.5-5.1)
[2022-07-14] MEDS: CHECK fentaNYL PATCH PLACEMENT SCH ×3 (07:26→23:23)
[2022-07-14] MEDS: CYANOCOBALAMIN (B-12) 500 MCG TABLET PO SCH (07:27)
[2022-07-14] MEDS: LORATADINE 10 MG TAB PO SCH (07:27)
[2022-07-14] MEDS: SERTRALINE HCL 50 MG TABLET PO SCH (07:27)
[2022-07-14] MEDS: PANTOprazole 40 MG TAB PO SCH ×2 (07:27→19:50)
[2022-07-14] MEDS: PREGABALIN 150 MG CAP PO SCH ×2 (07:35→19:53)
[2022-07-14] MEDS: dexAMETHasone 6 MG in SYRINGE 0 ML IV SCH (08:49)
--- NOTE | 2022-07-14 09:39 | Orthopedic Progress Note ---
Date of Service July 14, 2022 Assessment & Plan (1) Neurogenic claudication due to lumbar spinal stenosis: Plan: Patient is doing well postoperative day #2. There are no signs of persistent spinal fluid leak. We are continue with GI DVT prophylaxis and pain control measures. Organ to hold his dose of Decadron as he had some mild confusion overnight. We will see how he is doing tomorrow and possibly discharge him to home on Sunday. Admission and Anticipated Discharge Date Admission Date: July 12, 2022 Subjective Patient was seen bedside in the room 321. He is doing well this morning. His pain is well controlled. They have discontinued his Rubio. He is not having any headaches. He denies any other numbness, tingling, or paresthesias. Physical Exam Physical Exam: On exam he is alert and oriented. His dressing is clean dry and intact. His YESSENIA drain has been DC'd. His strength and sensation are both intact. His gait was not observed. Cardiovascular exam reveals no gross abnormalities. Visual robles are grossly intact. Results & Data Vital Signs (Past 12 Hours) Vital Signs Temp Pulse Resp BP Pulse Ox O2 Del Method 07/14/22 07:20 37.3 C 69 18 145/84 H 96 Room Air 07/13/22 21:53 36.7 C 62 18 106/58 L 92 Room Air
[2022-07-14] MEDS: oxyCODONE HCL IR 5 MG TAB (IMMEDIATE RELEASE) PO PRN ×2 (09:50→19:50)
--- NOTE | 2022-07-14 12:22 | Hospitalist Progress Note ---
Date of Service July 14, 2022 Assessment & Plan (1) Neurogenic claudication due to lumbar spinal stenosis: (2) Hypertension: (3) Hyperlipidemia: (4) BPH (benign prostatic hyperplasia): Plan Neurogenic claudication due to lumbar spinal stenosis S/P L3-L5 decompression fusion by Dr. Donato POD #2 EBL: 350ml Pain/wound management per orthopedic Activity and therapy as per orthopedics Encourage incentive spirometry and wean oxygen as able Monitor hemoglobin, preop 13.7 Hb today is stable post op, 10.7 today. Post op anemia likely from blood loss + dilutional Bowel regimen Hypertension Resume home HCTZ Hyperlipidemia Continue statin BPH Continue Flomax Monitor urine output with medrano removal PTSD/anxiety Continue Zoloft Chronic pain syndrome Patient on Lyrica and fentanyl patch DVT ppx: per primary Dispo: per primary PCP: Isac Melton FULL CODE I spent a total of 35 minutes coordinating, documenting and providing care for this patient excluding time spent in performance of separately billed services Admission and Anticipated Discharge Date Admission Date: July 12, 2022 Subjective Patient seen and examined Reports surgical site pain is well controlled Yet to have a BM Reports improvement in his radiculopathic pain Physical Exam Constitutional: + well hydrated; no acute distress Eyes: PERRL, conjunctivae normal, anicteric sclerae ENMT: external ear and nose normal, oropharynx normal Respiratory: normal respiratory effort, lungs clear to auscultation Cardiovascular: Rate/Rhythm: regular rate and regular rhythm S1 S2 Gastrointestinal (Abdomen): normal bowel sounds, soft, nontender, no hepatosplenomegaly Musculoskeletal: Clean dressing over surgical site Neurologic: PERRL, EOMI, accommodation nl, no face palsy, no dysarthria Psychiatric: A+Ox3, euthymic affect Results & Data Results & Data Vital Signs (Past 12 Hours) Vital Signs Temp Pulse Resp BP Pulse Ox O2 Del Method 07/14/22 07:20 37.3 C 69 18 145/84 H 96 Room Air Laboratory Results Abnormal lab results 07/14/22 07/14/22 Range/Units 06:07 06:07 RBC 3.46 L (4.70-6.10) M/uL Hgb 10.7 L (14.0-18.0) g/dl Hct 31.7 L (42.0-52.0) % Plt Count 118 L (130-400) K/uL Creatinine 1.45 H (0.6-1.4) mg/dl Glucose 105 H (70-99(Fasting)) mg/dl
[2022-07-14] MEDS: ATORVASTATIN 20 MG TAB PO SCH (19:49)
[2022-07-14] MEDS: DOCUSATE SODIUM/SENNA 50/8.6MG TAB PO SCH (19:49)
[2022-07-14] MEDS: TAMSULOSIN HCL 0.4 MG CAP PO SCH (19:50)
[2022-07-15] MEDS: oxyCODONE HCL IR 5 MG TAB (IMMEDIATE RELEASE) PO PRN (01:31)
[2022-07-15] MEDS: ACETAMINOPHEN 500 MG TAB PO PRN ×2 (01:32→15:38)
[2022-07-15] MEDS: POLYETHYLENE (MIRALAX) 17 GM PACK PO SCH ×2 (06:16→12:29)
--- NOTE | 2022-07-15 08:17 | Orthopedic Progress Note ---
Date of Service July 15, 2022 Assessment & Plan (1) Neurogenic claudication due to lumbar spinal stenosis: Plan: Chacorta is postoperative day 3 status post lumbar decompression and fusion L3-5 with subsequent durotomy. We will work on aggressive bowel regimen today. Continue with pain control. Continue to monitor for any signs of persistent CSF leak. May be able to discharge him home tomorrow. Admission and Anticipated Discharge Date Admission Date: July 12, 2022 Subjective Chacorta is postoperative day 3 status post L3-5 decompression and fusion with subsequent durotomy. He states he has had headaches off and on. These do not seem to be positional. Denies any nausea or vomiting. Radicular leg pain is improved. He has not had a bowel movement yet. Denies any abdominal pain or bloating. Yesterday in physical therapy ambling roughly 80 feet. Review of Systems Review of Systems: All systems reviewed & are unremarkable except as noted in HPI & below Physical Exam Physical Exam: Alert and oriented times No acute distress I did have him sit up from a lying to a seated position. This did not reproduce any headache, nausea, vomiting Lumbar dressing is clean dry and intact Strength is intact bilateral lower extremity Calf soft nontender bilateral lower extremities Results & Data Vital Signs (Past 12 Hours) Vital Signs Temp Pulse Resp BP Pulse Ox O2 Del Method 07/14/22 22:19 37.9 C H 81 18 111/66 95 Room Air
[2022-07-15] MEDS: CYANOCOBALAMIN (B-12) 500 MCG TABLET PO SCH (08:26)
[2022-07-15] MEDS: PANTOprazole 40 MG TAB PO SCH ×2 (08:26→20:24)
[2022-07-15] MEDS: SERTRALINE HCL 50 MG TABLET PO SCH (08:27)
[2022-07-15] MEDS: LORATADINE 10 MG TAB PO SCH (08:27)
[2022-07-15] MEDS: PREGABALIN 150 MG CAP PO SCH ×2 (08:38→20:28)
[2022-07-15] MEDS: CHECK fentaNYL PATCH PLACEMENT SCH ×2 (08:38→16:54)
[2022-07-15] MEDS: hydroCHLOROthiazide 25 MG TAB PO SCH (09:29)
[2022-07-15] MEDS: fentaNYL 25 MCG/HR TDSY TD SCH (12:42)
--- NOTE | 2022-07-15 12:47 | Hospitalist Progress Note ---
Date of Service July 15, 2022 Assessment & Plan (1) Neurogenic claudication due to lumbar spinal stenosis: (2) Hypertension: (3) Hyperlipidemia: (4) BPH (benign prostatic hyperplasia): Plan Neurogenic claudication due to lumbar spinal stenosis S/P L3-L5 decompression fusion by Dr. Donato POD #3 EBL: 350ml Pain/wound management per orthopedic Activity and therapy as per orthopedics Encourage incentive spirometry and wean oxygen as able Monitor hemoglobin, preop 13.7 Hb is stable post op in 10s. Post op anemia likely from blood loss + dilutional Aggressive bowel regimen Hypertension Continue home HCTZ Hyperlipidemia Continue statin BPH Continue Flomax PTSD/anxiety Continue Zoloft Chronic pain syndrome Patient on Lyrica and fentanyl patch DVT ppx: per primary Dispo: per primary PCP: Isac Melton FULL CODE I spent a total of 35 minutes coordinating, documenting and providing care for this patient excluding time spent in performance of separately billed services Admission and Anticipated Discharge Date Admission Date: July 12, 2022 Subjective Patient seen and examined Yet to have a BM Reports improvement in his radiculopathic pain Denied any other symptoms in ROS Physical Exam Constitutional: + well hydrated; no acute distress Eyes: PERRL, conjunctivae normal, anicteric sclerae ENMT: external ear and nose normal, oropharynx normal Respiratory: normal respiratory effort, lungs clear to auscultation Cardiovascular: Rate/Rhythm: regular rate and regular rhythm S1 S2 Gastrointestinal (Abdomen): normal bowel sounds, soft, nontender, no hepatosplenomegaly Musculoskeletal: Clean dressing over lower back surgical site Neurologic: PERRL, EOMI, accommodation nl, no face palsy, no dysarthria Psychiatric: A+Ox3, euthymic affect Results & Data Results & Data Vital Signs (Past 12 Hours) Vital Signs Temp Pulse Resp BP Pulse Ox O2 Del Method 07/15/22 09:59 Room Air 07/15/22 08:30 36.7 C 65 16 145/76 H 96 Room Air
[2022-07-15] MEDS: DOCUSATE SODIUM/SENNA 50/8.6MG TAB PO SCH (20:24)
[2022-07-15] MEDS: ATORVASTATIN 20 MG TAB PO SCH (20:24)
[2022-07-15] MEDS: TAMSULOSIN HCL 0.4 MG CAP PO SCH (20:24)
[2022-07-16] MEDS: CHECK fentaNYL PATCH PLACEMENT SCH ×4 (01:28→23:42)
[2022-07-16] MEDS: hydroCHLOROthiazide 25 MG TAB PO SCH (08:11)
[2022-07-16] MEDS: PREGABALIN 150 MG CAP PO SCH ×2 (08:11→20:07)
[2022-07-16] MEDS: LORATADINE 10 MG TAB PO SCH (08:12)
[2022-07-16] MEDS: PANTOprazole 40 MG TAB PO SCH ×2 (08:12→20:04)
[2022-07-16] MEDS: CYANOCOBALAMIN (B-12) 500 MCG TABLET PO SCH (08:12)
[2022-07-16] MEDS: SERTRALINE HCL 50 MG TABLET PO SCH (08:13)
--- NOTE | 2022-07-16 10:26 | Hospitalist Progress Note ---
Date of Service July 16, 2022 Assessment & Plan (1) Neurogenic claudication due to lumbar spinal stenosis: (2) Hypertension: (3) Hyperlipidemia: (4) BPH (benign prostatic hyperplasia): Plan Neurogenic claudication due to lumbar spinal stenosis S/P L3-L5 decompression fusion by Dr. Donato POD #4 EBL: 350ml Pain/wound management per orthopedic Activity and therapy as per orthopedics Preop Hb 13.7 Hb is stable post op in 10s. Post op anemia likely from blood loss + dilutional Hypertension Continue home HCTZ Hyperlipidemia Continue statin BPH Continue Flomax PTSD/anxiety Continue Zoloft Chronic pain syndrome Patient on Lyrica and fentanyl patch DVT ppx: per primary Dispo: per primary surgical team PCP: Isac Melton FULL CODE I spent a total of 35 minutes coordinating, documenting and providing care for this patient excluding time spent in performance of separately billed services Admission and Anticipated Discharge Date Admission Date: July 12, 2022 Subjective Patient seen and examined Reported he has been having BM since yesterday Per RN, patient had fallen yesterday evening while 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 She reported surgery PA evaluated Patient reported he was stooping to try to get his php software engineer on the floor, slipped and fell on his buttock Denied any head trauma or increased pain anywhere. Reports improvement in his radiculopathic pain Denied any other symptoms in ROS Physical Exam Constitutional: + well hydrated; no acute distress Eyes: PERRL, conjunctivae normal, anicteric sclerae ENMT: external ear and nose normal, oropharynx normal Respiratory: normal respiratory effort, lungs clear to auscultation Cardiovascular: Rate/Rhythm: regular rate and regular rhythm S1 S2 Gastrointestinal (Abdomen): normal bowel sounds, soft, nontender, no hepatosplenomegaly Musculoskeletal: Clean dressing over surgical site No pedal edema Neurologic: PERRL, EOMI, accommodation nl, no face palsy, no dysarthria Psychiatric: A+Ox3, euthymic affect Results & Data Results & Data Vital Signs (Past 12 Hours) Vital Signs Temp Pulse Resp BP Pulse Ox O2 Del Method 07/16/22 08:00 37.0 C 77 16 152/83 H 94 Room Air 07/16/22 08:18 36.3 C L 61 20 164/93 H 94 Room Air 07/16/22 01:45 57 L 18 170/93 H 95 Room Air 07/15/22 22:34 37.2 C 80 17 107/71 94 Room Air
[2022-07-16] MEDS: oxyCODONE HCL IR 5 MG TAB (IMMEDIATE RELEASE) PO PRN (11:48)
[2022-07-16] MEDS ORDERED: dexAMETHasone 6 MG in SYRINGE 0 ML IV STA (15:18)
--- NOTE | 2022-07-16 15:18 | Orthopedic Progress Note ---
Date of Service July 16, 2022 Assessment & Plan (1) Neurogenic claudication due to lumbar spinal stenosis: Plan: This time would like to continue physical therapy I will reinitiate a short course of steroids to help with this pain. He is not interested in rehab. I will reintroduce this concept tomorrow. Admission and Anticipated Discharge Date Admission Date: July 12, 2022 Subjective Patient's back pain is still somewhat troublesome. Strong with little bit of pain of the right ankle but improving with physical therapy. Physical Exam Physical Exam: On exam I did have him stand for me. He had some difficulty getting out of the chair but was able to stand for discussion. He has some ecchymosis along the bottom half of the lumbosacral spine. Good strength testing otherwise. Results & Data Vital Signs (Past 12 Hours) Vital Signs Temp Pulse Resp BP Pulse Ox O2 Del Method 07/16/22 08:00 37.0 C 77 16 152/83 H 94 Room Air 07/16/22 08:18 36.3 C L 61 20 164/93 H 94 Room Air
[2022-07-16] MEDS: TAMSULOSIN HCL 0.4 MG CAP PO SCH (20:04)
[2022-07-16] MEDS: ATORVASTATIN 20 MG TAB PO SCH (20:04)
[2022-07-16] MEDS: DOCUSATE SODIUM/SENNA 50/8.6MG TAB PO SCH (20:04)
[2022-07-17] MEDS: oxyCODONE HCL IR 5 MG TAB (IMMEDIATE RELEASE) PO PRN ×2 (02:17→12:31)
[2022-07-17] MEDS: LORATADINE 10 MG TAB PO SCH (08:02)
[2022-07-17] MEDS: CYANOCOBALAMIN (B-12) 500 MCG TABLET PO SCH (08:03)
[2022-07-17] MEDS: hydroCHLOROthiazide 25 MG TAB PO SCH (08:03)
[2022-07-17] MEDS: SERTRALINE HCL 50 MG TABLET PO SCH (08:03)
[2022-07-17] MEDS: PANTOprazole 40 MG TAB PO SCH (08:03)
[2022-07-17] MEDS: CHECK fentaNYL PATCH PLACEMENT SCH (08:04)
[2022-07-17] MEDS: PREGABALIN 150 MG CAP PO SCH (08:35)
--- NOTE | 2022-07-17 09:45 | Discharge Summary ---
Date of Service July 17, 2022 Admission HPI Per Admitting Provider This is a 76-year-old male who presents with significant back and leg pain after failing extensive course of nonoperative care is here for surgical intervention. Principal Diagnosis Lumbar spinal stenosis with neurogenic claudication Discharge Data Allergies Allergy/AdvReac Type Severity Reaction Status Date / Time morphine Allergy Severe ITCHING Verified 07/12/22 06:26 Sulfa (Sulfonamide Allergy Severe Anaphylaxis Verified 07/12/22 06:26 Antibiotics) shellfish derived AdvReac KELLY/ GI Verified 07/12/22 06:26 upset Consultations 07/12/22 12:54 Consult Hospitalist Routine Procedures Performed Operation Date: 07/12/22 07:45 Actual Procedures p L3-L5 Decompression and Fusion, Interbody Fusion L4-L5, Spinal Cord Monitoring, Repair of Dural Tear, Bone Morphogenetic Protein, Spinal Cord Monitoring - Ministerio Donato DO Ordered Studies 07/12/22 07:45 FL lumbar spine 2-3V Routine Hospital Course (1) Neurogenic claudication due to lumbar spinal stenosis: Patient underwent multilevel lumbar decompression fusion tolerated this well was taken to orthopedic for postoperative. Postop day 1 initiated course of physical therapy he continued throughout his hospital stay. He made steady i mprovements that his stay. He subsequently discharged with home health. Discharge orders instructions found in chart for further review. Total Time Total Time Spent Total Time Spent (In Minutes): 20 minutes Discharge Plan Discharge Items Patient Disposition: Home - Home Health Services Reason For Visit: POSTOP Discharge Diagnosis: lumbar stenosis Activity: As commented below Non-emergency contact: Primary Care Provider Call non-emergency contact if: you have any medication questions Follow-up/Referrals: Isac Melton, [employer] [Primary Care Provider] - Diet: Regular Addtl Attending Provider Instructions: ACTIVITY RECOMMENDATIONS: SELF CARE INSTRUCTIONS AFTER THORACIC/LUMBAR FUSIONS 1. You may walk to your tolerance. It is good exercise for your legs and back. Expect some back and intermittent leg aches and pains. 2. You may perform "counter-top" level activities (make a sandwich, arnold with a project, etc.). 3. No bending or lifting of more than 10 pounds or back twisting of any nature (roll like a log when turning in bed). 4. You may ride in a car for 20-30 minutes at a time. No driving until after your first visit with your doctor. 5. Frequent changes of position and restricting sitting to 30 minutes at a time will help limit the amount of back spasms and stiffness you may experience. 6. You may discontinue the use of ambulatory aids (cane, crutches, etc.) once your strength and confidence allow. 7. You may spring fitter the shower and let water strike your incision when you arrive home at least once daily. Do not take a tub bath, sit in a hot tub or go into a swimming pool until after your first recheck in the office. SPECIAL CARE INSTRUCTIONS: VERY IMPORTANT TO READ AND REVIEW A. Your surgical incision has been closed with a cosmetic suture under the skin that will dissolve in about 6 weeks. In 14 days, you can use a pair of clean scissors and cut the suture that is left outside of the skin at the ends of your incision. 1. The small skin tapes can be removed 7 days after surgery if they have not fallen off by that point. 2. You may keep the wound open to air as much as possible to promote healing after post-op day number 5 unless told otherwise by your doctor. 3. If you think the wound looks like it is becoming infected (redness or worsening drainage) and/or you are experiencing fever, chill or worsening back pain and muscle spasms, contact the office so that we may evaluate you as soon as possible. B. Complications are uncommon, but please contact us if you have any signs or symptoms of: 1. wound infection (fever higher than 102.5 degrees F, redness, separation of wound, drainage, or increasing pain from the incision) 2. blood clots in legs (pain, swelling, redness and warmth in legs) 3. urinary tract infection (fever higher than 102.5 degrees F, burning upon urination or increased frequency of urination) 4. nerve problems (inability to walk on your toes or heels, numbness, loss of bowel or bladder control) 5. any other symptoms that concern you C. Please call the office at if you have any concerns or questions about your operation or recovery. D. No smoking! Smoking drastically decreases the chance of a solid fusion. E. Do not take any anti-inflammatory medications (Indocin, Advil, Motrin, Aspirin, Naprosyn, etc.) as these may inhibit the chance of a solid fusion. Tylenol is okay to take for pain. MANAGING PAIN AFTER SPINAL SURGERY 1. Narcotic medication is intended for short-term use and will be provided for surgical pain. Surgical pain usually lasts for a period of 4-6 weeks. Narcotic medication includes Percocet, Vicodin, Darvocet, Tylenol #3 or Lortab. 2. Longer-term pain is more appropriately treated with non-narcotic medication such as Tylenol ES. 3. Muscle spasm is not appropriately treated with narcotics. Muscle relaxers such as Soma, Flexeril or Skelaxin can be used along with Tylenol ES. 4. Remember that we all live with some "aches and pains". This is not unusual or uncommon after an injury or as we get older. a. Back pain is expected and may include muscle spasms for 4 to 6 weeks after surgery. The pain should gradually improve. If the pain worsens for no apparent reason, please contact the office. b. Intermittent leg pain may also be experienced and should not be concerned about unless it worsens for no apparent reason. If so, please contact the office. 5. We will provide appropriate medication within the normal guidelines of their prescribed use. We will also be very cautious and aware of potential abuse and extended duration of patients' medication needs. a. Pain medications are for your comfort and to assist with sleep and rest so that the tissue can heal. They are not provided in order to return to normal activity and should not be used through the day. To do so or worsening pain at night can result from ongoing tissue damage and development of tolerance to the prescribed medicine. 6. Please allow 2-3 days to process refills. Prescriptions will not be mailed but must be picked up at the office. FOLLOW UP VISIT: Keep your scheduled follow-up appointment. Any questions, please call the office at . Pending Studies at Discharge: No Stand-Alone Forms: My [employer], Smoking Cessation Medications and DC Order Prescriptions: New tramadol 50 mg tablet 50 mg PO Q6H PRN (Reason: pain, moderate) Qty: 30 0RF oxycodone 5 mg tablet 5 mg PO Q6H PRN (Reason: pain) Qty: 30 0RF Continued methocarbamol 500 mg Tablet 500 mg PO Q12 PRN (Reason: MUSCLE SPASMS) atorvastatin 20 mg Tablet 20 mg PO HS cyanocobalamin (vitamin B-12) [Vitamin B-12] 1,000 mcg Tablet 1,000 mcg PO QAM tamsulosin [Flomax] 0.4 mg Capsule 0.4 mg PO HS omeprazole 20 mg Capsule,Delayed Release(Dr/Ec) 20 mg PO BID hydrochlorothiazide 25 mg Tablet 25 mg PO QAM fentanyl 25 mcg/hr Patch 72 Hour 1 patch TRANSDERMAL Q72H sertraline 50 mg Tablet 75 mg PO QAM loratadine [Claritin] 10 mg Tablet 10 mg PO QAM pregabalin 300 mg Capsule 300 mg PO BID Discharge Orders: Discharge Order (Routine); Ordered 07/17/22 Ordered By: Ministerio Donato Admission Data Admit Date/Time: 07/12/22 10:13 Attending Provider: Ministerio Doanto Admit Provider: Ministerio Donato Primary Care Provider: Isac Melton Other Providers: Jessica Isidro ; Brina Montoya I. ; [facility]
--- NOTE | 2022-07-17 13:15 | Hospitalist Progress Note ---
Date of Service July 17, 2022 Assessment & Plan (1) Neurogenic claudication due to lumbar spinal stenosis: (2) Hypertension: (3) Hyperlipidemia: (4) BPH (benign prostatic hyperplasia): Plan Neurogenic claudication due to lumbar spinal stenosis S/P L3-L5 decompression fusion by Dr. Donato POD #5 EBL: 350ml Pain/wound management per orthopedic Activity and therapy as per orthopedics Preop Hb 13.7 Hb is stable post op in 10s. Post op anemia likely from blood loss + dilutional Hypertension Continue home HCTZ Hyperlipidemia Continue statin BPH Continue Flomax PTSD/anxiety Continue Zoloft Chronic pain syndrome Patient on Lyrica PCP: Isac Melton FULL CODE I spent a total of 35 minutes coordinating, documenting and providing care for this patient excluding time spent in performance of separately billed services Stable for dc Admission and Anticipated Discharge Date Admission Date: July 12, 2022 Subjective Patient seen and examined Patient reports surgical site pain Has been moving his bowels well He stated he does not want to go to rehab Physical Exam Constitutional: + well hydrated; no acute distress Eyes: PERRL, conjunctivae normal, anicteric sclerae ENMT: external ear and nose normal, oropharynx normal Respiratory: normal respiratory effort, lungs clear to auscultation Cardiovascular: Rate/Rhythm: regular rate and regular rhythm S1 S2 Gastrointestinal (Abdomen): normal bowel sounds, soft, nontender, no hepatosplenomegaly Musculoskeletal: Clean dressing over surgical site Neurologic: PERRL, EOMI, accommodation nl, no face palsy, no dysarthria Psychiatric: A+Ox3, euthymic affect Results & Data Results & Data Vital Signs (Past 12 Hours) Vital Signs Temp Pulse Resp BP Pulse Ox O2 Del Method 07/17/22 07:43 36.8 C 71 14 154/74 H 92 Room Air
== END 2022-07-17 13:39 | disposition home health service (06) | DRG 454 ==
LOC: ASU 05:48 → 3E 10:13